=== PATIENT | male | born 1940 | race Hispanic/Latino ===

== ENCOUNTER → 2021-12-27 | Outpatient (CLI) | payer OTHER ==
[~2021-12-27] MED LIST: REGADENOSON 0.4 MG/5 ML PF SYG IVP SCH
== END | disposition home or self-care (01) ==
LOC: RAH 11:25
PROVIDERS: ATTEND Internal Medicine Cardiovascular Disease
DX: I20.9 Angina pectoris, unspecified (principal); Z95.0 Presence of cardiac pacemaker
CPT/HCPCS: 78452; 96374; 93017; J2785; A9500 ×2